=== PATIENT | female | born 1940 | race Caucasian/White ===

== ENCOUNTER → 2017-12-11 | Outpatient (CLI) | payer OTHER ==
[~2017-12-11] MED LIST: ATOR20TA65 PO; CALC-839 PO; FAMC500T18 PO; SUCR1TAB2 PO
== END | disposition home or self-care (01) ==
LOC: OIH 15:31
PROVIDERS: ATTEND Family Medicine
DX: M19.042 Primary osteoarthritis, left hand (principal); M19.041 Primary osteoarthritis, right hand; M47.895 Other spondylosis, thoracolumbar region
CPT/HCPCS: 71046; 73130

== ENCOUNTER → 2018-03-12 | Outpatient (CLI) | payer OTHER | END | disposition home or self-care (01) | LOC: OIH 15:17 | PROVIDERS: ATTEND Family Medicine | DX: M54.5 Low back pain (principal) | CPT/HCPCS: 72100 ==

== ENCOUNTER 2018-03-13 13:26 | Emergency (ER) | payer OTHER ==
[2018-03-13] MEDS ORDERED: DIAZEPAM 5 MG TABLET ONE ×2 (14:12→14:21)
[2018-03-13] MEDS ORDERED: KETOROLAC TROMETHAMINE 15MG/ML ONE ×2 (14:12→14:20)
[2018-03-13 14:32] LABS: BASOPHILS % (AUTO) 0.6 % (0.0-5.0); EOSINOPHILS % (AUTO) 0.4 % (0.0-8.0); HEMATOCRIT 40.6 % (36-48); LYMPHOCYTES % (AUTO) 19.1 % (21.0-51.0); MEAN CORPUSCULAR HEMOGLOBIN 31.3 pg (27.0-33.0); MEAN CORPUSCULAR HGB CONC 34.2 g/dL (32.0-36.0); MEAN CORPUSCULAR VOLUME 91.6 fL (79-99); MONOCYTES % (AUTO) 7.7 % (3.0-13.0); NEUTROPHILS % (AUTO) 72.2 % (40.0-77.0); PLATELET COUNT (AUTO) 250 K/uL (130-400); RED BLOOD CELL COUNT(AUTO) 4.43 MIL/uL (4.00-5.50); RED CELL DISTRIBUTION WIDTH 13.7 % (11.0-15.5)
[2018-03-13 14:42] LABS: CREATININE 0.8 mg/dL (0.5-1.5); POTASSIUM 4.3 mmol/L (3.5-5.1)
[2018-03-13 14:43] LABS: APPEARANCE,URINE Clear (CLEAR); BILIRUBIN,URINE Negative (NEGATIVE); COLOR,URINE Yellow (YELLOW); GLUCOSE, URINE (UA) Negative (NEGATIVE); KETONES,URINE Negative (NEGATIVE); LEUKOCYTE ESTERASE ,URINE Negative (NEGATIVE); NITRATE,URINE Negative (NEGATIVE); OCCULT BLOOD,URINE Trace (NEGATIVE); PROTEIN,URINE Negative (NEGATIVE); UROBILINOGEN,URINE 0.2 mg/dL (0.2-1.0)
[2018-03-13 14:44] LABS: INR 0.99 (0.85-1.15); PARTIAL THROMBOPLASTIN TIME 27.9 SEC (26.3-35.5); PROTHROMBIN TIME 10.4 SEC (9.6-11.6)
[2018-03-13 14:46] LABS: BILIRUBIN,TOTAL 0.5 mg/dL (0.2-1.0); TOTAL PROTEIN, SERUM 7.4 g/dL (6.0-8.3)
[2018-03-13 14:58] LABS: CREATINE KINASE MB 1.8 ng/mL (0.5-3.6)
[2018-03-13 15:08] LABS: WBC,URINE 0-1 /HPF (0-1)
[2018-03-13 15:09] LABS: BACTERIA,URINE Rare /HPF (None Seen); SQUAMOUS EPITHELIAL CELL,UR Rare /HPF (0-2)
[2018-03-13] MEDS ORDERED: ONDANSETRON HCL MDV 20ML 2 MG/ML VIAL ONE (16:40)
[2018-03-13] MEDS ORDERED: MEPERIDINE-PF 25 MG/ML SYG ONE (16:41)
== END 2018-03-13 17:29 | disposition home or self-care (01) ==
LOC: EDH 13:26
DX: M54.16 Radiculopathy, lumbar region (principal); N20.1 Calculus of ureter; E78.00 Pure hypercholesterolemia, unspecified; Z88.2 Allergy status to sulfonamides; Z88.1 Allergy status to other antibiotic agents; Z88.8 Allergy status to other drugs, medicaments and biological substances; Z90.710 Acquired absence of both cervix and uterus; Z90.49 Acquired absence of other specified parts of digestive tract
CPT/HCPCS: 36415; 74176; 80053; 81001; 82550; 82553; 83690; 84484; 85025; 85610; 85730; 93005; 96374; 96375; 99285; J1885; J2175

== ENCOUNTER → 2020-04-15 | Outpatient (CLI) | payer MEDICARE ==
[~2020-04-15] MED LIST changes: -FAMC500T18 PO; +FAMC500T8 PO; +REGADENOSON 0.4 MG/5 ML PF SYG IVP ONE; +REGADENOSON 0.4 MG/5 ML PF SYG IVP SCH
== END ==
LOC: SHCH 08:10
PROVIDERS: ATTEND Internal Medicine Cardiovascular Disease
DX: I20.9 Angina pectoris, unspecified (principal); R06.09 Other forms of dyspnea
CPT/HCPCS: 78452; 93017; 96374; A9500 ×2; J2785

== ENCOUNTER → 2020-11-25 | Outpatient (CLI) | payer MEDICARE ==
[~2020-11-25] MED LIST changes: -REGADENOSON 0.4 MG/5 ML PF SYG IVP ONE; -REGADENOSON 0.4 MG/5 ML PF SYG IVP SCH
== END | disposition home or self-care (01) ==
LOC: RAH 10:45
PROVIDERS: ATTEND Internal Medicine Gastroenterology
DX: R11.0 Nausea (principal)
CPT/HCPCS: 78264; A9541

== ENCOUNTER → 2021-01-10 | Outpatient (CLI) | payer MEDICARE ==
[~2021-01-10] VITALS: Ht 162.6 cm; Wt 67.5 kg
[~2021-01-10] MED LIST changes: +ALEN70TA80 PO; +ASPI-1197 PO; +CA C1TAB95 PO; +CITA20TA17 PO; +DICY10CA13 PO; +FISH1CAP50 PO; +METO25TA6 PO; +MULT-1192 PO; +NITR0.4T50 SL; +OMEP40CA13 PO; +SODIUM CHLORIDE 0.9% 500ML 500 ML IV SCH
[2021-01-10 10:16] VITALS: BP 139/68
[2021-01-10 14:17] LABS: BASOPHILS % (AUTO) 0.2 % (0.0-5.0); EOSINOPHILS % (AUTO) 0.7 % (0.0-8.0); HEMATOCRIT 39.6 % (36-48); LYMPHOCYTES % (AUTO) 18.3 % (21.0-51.0); MEAN CORPUSCULAR HEMOGLOBIN 30.6 pg (27.0-33.0); MEAN CORPUSCULAR HGB CONC 32.8 g/dL (32.0-36.0); MEAN CORPUSCULAR VOLUME 93.2 fL (79-99); MONOCYTES % (AUTO) 9.1 % (3.0-13.0); NEUTROPHILS % (AUTO) 71.3 % (40.0-77.0); PLATELET COUNT (AUTO) 267 K/uL (130-400); RED BLOOD CELL COUNT(AUTO) 4.25 MIL/uL (4.00-5.50); RED CELL DISTRIBUTION WIDTH 13.2 % (11.0-15.5); WHITE BLOOD COUNT (AUTO) 8.6 K/uL (4.8-10.8)
[2021-01-10 14:26] LABS: APPEARANCE,URINE Clear (CLEAR); BILIRUBIN,URINE Negative (NEGATIVE); COLOR,URINE Yellow (YELLOW); GLUCOSE, URINE (UA) Negative (NEGATIVE); KETONES,URINE Negative (NEGATIVE); LEUKOCYTE ESTERASE ,URINE Trace (NEGATIVE); NITRATE,URINE Negative (NEGATIVE); OCCULT BLOOD,URINE Trace (NEGATIVE); PH,URINE 5.5 (5.0-8.0); PROTEIN,URINE Negative (NEGATIVE); UROBILINOGEN,URINE 0.2 mg/dL (0.2-1.0)
[2021-01-10 14:28] LABS: CREATININE 0.7 mg/dL (0.5-1.5); POTASSIUM 4.1 mmol/L (3.5-5.1)
[2021-01-10 14:29] LABS: INR 0.97 (0.85-1.15); PROTHROMBIN TIME 10.6 SEC (9.6-11.6)
[2021-01-10 14:31] LABS: PARTIAL THROMBOPLASTIN TIME 26.6 SEC (26.3-35.5)
[2021-01-10 14:58] LABS: BACTERIA,URINE Rare /HPF (None Seen); RBC,URINE None Seen /HPF (0-1); SQUAMOUS EPITHELIAL CELL,UR None Seen /HPF (0-2); WBC,URINE 0-1 /HPF (0-1)
== END | disposition home or self-care (01) ==
LOC: DAH 10:00 → EDSTATUS 13:00
PROVIDERS: ATTEND Internal Medicine Cardiovascular Disease
DX: Z01.810 Encounter for preprocedural cardiovascular examination (principal); I25.119 Atherosclerotic heart disease of native coronary artery with unspecified angina pectoris; Z79.01 Long term (current) use of anticoagulants; Z88.8 Allergy status to other drugs, medicaments and biological substances; Z88.6 Allergy status to analgesic agent
CPT/HCPCS: 36415; 71045; 80048; 81001; 85025; 85610; 85730; 93005

== ENCOUNTER 2021-02-13 13:17 | Day surgery (SDC) | payer MEDICARE ==
[2021-02-09 09:11] VITALS: BP 140/82
[2021-02-09 12:57] LABS: BASOPHILS % (AUTO) 0.4 % (0.0-5.0); HEMATOCRIT 39.5 % (36-48); LYMPHOCYTES % (AUTO) 19.8 % (21.0-51.0); MEAN CORPUSCULAR HEMOGLOBIN 29.9 pg (27.0-33.0); MEAN CORPUSCULAR HGB CONC 32.4 g/dL (32.0-36.0); MEAN CORPUSCULAR VOLUME 92.3 fL (79-99); MONOCYTES % (AUTO) 11.5 % (3.0-13.0); NEUTROPHILS % (AUTO) 66.9 % (40.0-77.0); PLATELET COUNT (AUTO) 283 K/uL (130-400); RED BLOOD CELL COUNT(AUTO) 4.28 MIL/uL (4.00-5.50); RED CELL DISTRIBUTION WIDTH 13.2 % (11.0-15.5); WHITE BLOOD COUNT (AUTO) 7.8 K/uL (4.8-10.8)
[2021-02-09 13:07] LABS: APPEARANCE,URINE Clear (CLEAR); BILIRUBIN,URINE Negative (NEGATIVE); COLOR,URINE Yellow (YELLOW); CREATININE 0.7 mg/dL (0.5-1.5); GLUCOSE, URINE (UA) Negative (NEGATIVE); KETONES,URINE Negative (NEGATIVE); LEUKOCYTE ESTERASE ,URINE Trace (NEGATIVE); NITRATE,URINE Negative (NEGATIVE); OCCULT BLOOD,URINE Trace (NEGATIVE); POTASSIUM 3.9 mmol/L (3.5-5.1); PROTEIN,URINE Negative (NEGATIVE); UROBILINOGEN,URINE 0.2 mg/dL (0.2-1.0)
[2021-02-09 13:09] LABS: PROTHROMBIN TIME 10.9 SEC (9.6-11.6)
[2021-02-09 13:10] LABS: PARTIAL THROMBOPLASTIN TIME 25.9 SEC (26.3-35.5)
[2021-02-09 13:20] LABS: BACTERIA,URINE Rare /HPF (None Seen); RBC,URINE 0-1 /HPF (0-1); SQUAMOUS EPITHELIAL CELL,UR Rare /HPF (0-2); WBC,URINE 0-1 /HPF (0-1)
[~2021-02-13] VITALS: Ht 162.6 cm; Wt 65.8 kg
[2021-02-13] VITALS (9 sets, daily range): BP systolic 135–167; BP diastolic 65–81
[~2021-02-13 13:17] MED LIST changes: +0.9%NACL 1000ML 1,000 ML IV SCH; -CALC-839 PO; +FENTANYL CITRATE PF 50 MCG/1 ML 2ML VIAL ONE; +HEPARIN 1,000 UNIT VIAL ONE; +IOHEXOL-350 50ML VIAL IV ONE; +IOPAMIDOL-370 100 ML VIAL IV ONE; +LIDOCAINE HCL 400MG/20ML VIAL ONE; +MIDAZOLAM HCL 1 MG/ML 2ML VIAL ONE; +NITROGLYCERIN 2 MG VIAL IV ONE; -OMEP40CA13 PO; +OMEP40CA21 PO; -SODIUM CHLORIDE 0.9% 500ML 500 ML IV SCH; -SUCR1TAB2 PO
== END 2021-02-13 16:39 | disposition home or self-care (01) ==
LOC: DAH 13:17
PROVIDERS: ATTEND Internal Medicine Cardiovascular Disease
DX: I25.118 Atherosclerotic heart disease of native coronary artery with other forms of angina pectoris (principal); I50.33 Acute on chronic diastolic (congestive) heart failure; E78.5 Hyperlipidemia, unspecified; F32.9 Major depressive disorder, single episode, unspecified; F41.9 Anxiety disorder, unspecified; M81.0 Age-related osteoporosis without current pathological fracture; E86.0 Dehydration; Z86.73 Personal history of transient ischemic attack (TIA), and cerebral infarction without residual deficits; Z90.49 Acquired absence of other specified parts of digestive tract; Z90.710 Acquired absence of both cervix and uterus; Z79.01 Long term (current) use of anticoagulants; Z79.899 Other long term (current) drug therapy
CPT/HCPCS: 36415; 71045; 80048; 81001; 85025; 85610; 85730; 93005; 93460; 96360; 96361; A4215; A4216; A4221; A4222; A4223 ×3; A4606; A4663; C1760; C1769; C1894 ×3; J1644 ×2; J2250; J3010; J3490 ×2; Q9967 ×2; 99156; 99157

== ENCOUNTER 2021-10-19 13:21 | Inpatient (IN) | payer MEDICARE ==
[~2021-10-19] VITALS: Ht 162.6 cm; Wt 64.2 kg
[~2021-10-19 13:21] MED LIST changes: -0.9%NACL 1000ML 1,000 ML IV SCH; -FENTANYL CITRATE PF 50 MCG/1 ML 2ML VIAL ONE; -HEPARIN 1,000 UNIT VIAL ONE; -IOHEXOL-350 50ML VIAL IV ONE; -IOPAMIDOL-370 100 ML VIAL IV ONE; -LIDOCAINE HCL 400MG/20ML VIAL ONE; -MIDAZOLAM HCL 1 MG/ML 2ML VIAL ONE; -NITROGLYCERIN 2 MG VIAL IV ONE
[2021-10-19 14:59] LABS: APPEARANCE,URINE Clear (CLEAR); BILIRUBIN,URINE Negative (NEGATIVE); COLOR,URINE Yellow (YELLOW); GLUCOSE, URINE (UA) Negative (NEGATIVE); KETONES,URINE Negative (NEGATIVE); LEUKOCYTE ESTERASE ,URINE Moderate (NEGATIVE); NITRATE,URINE Negative (NEGATIVE); OCCULT BLOOD,URINE Moderate (NEGATIVE); PH,URINE 6.5 (5.0-8.0); PROTEIN,URINE Negative (NEGATIVE)
[2021-10-19 15:09] LABS: BASOPHILS % (AUTO) 0.4 % (0.0-5.0); EOSINOPHILS % (AUTO) 1.6 % (0.0-8.0); HEMATOCRIT 38.9 % (36-48); LYMPHOCYTES % (AUTO) 19.6 % (21.0-51.0); MEAN CORPUSCULAR HEMOGLOBIN 30.5 pg (27.0-33.0); MEAN CORPUSCULAR HGB CONC 31.9 g/dL (32.0-36.0); MEAN CORPUSCULAR VOLUME 95.6 fL (79-99); MONOCYTES % (AUTO) 13.2 % (3.0-13.0); NEUTROPHILS % (AUTO) 64.4 % (40.0-77.0); PLATELET COUNT (AUTO) 240 K/uL (130-400); RED BLOOD CELL COUNT(AUTO) 4.07 MIL/uL (4.00-5.50); RED CELL DISTRIBUTION WIDTH 13.6 % (11.0-15.5); WHITE BLOOD COUNT (AUTO) 7.7 K/uL (4.8-10.8)
[2021-10-19 15:15] LABS: CREATININE 0.8 mg/dL (0.5-1.5); POTASSIUM 4.4 mmol/L (3.5-5.1)
[2021-10-19 15:23] LABS: B-TYPE NATRIURETIC PEPTIDE 132 pg/mL (0-100)
[2021-10-19 15:26] LABS: ALBUMIN 3.7 g/dL (3.5-5.0); BILIRUBIN,TOTAL 0.4 mg/dL (0.2-1.0); MAGNESIUM 2.3 mg/dL (1.80-2.40); TOTAL PROTEIN, SERUM 7.2 g/dL (6.0-8.3)
[2021-10-19 15:29] LABS: BACTERIA,URINE Few /HPF (None Seen); RBC,URINE 0-1 /HPF (0-1)
[2021-10-19 15:30] LABS: MUCUS,URINE Rare LPF (None Seen); SQUAMOUS EPITHELIAL CELL,UR Few /HPF (0-2)
[2021-10-19] MEDS ORDERED: ONDANSETRON 4MG INJ IV PRN (19:30)
[2021-10-19] MEDS: 0.9%NACL 1000ML 1,000 ML IV SCH (19:51)
[2021-10-19] MEDS: FAMOTIDINE 20MG VIAL IV SCH (20:57)
[2021-10-19] MEDS: ATORVASTATIN 20 MG TABLET PO SCH (21:16)
[2021-10-19] MEDS: CLOPIDOGREL 75MG TAB PO SCH (21:16)
[2021-10-19] MEDS: ASPIRIN 81MG CHEW TAB PO SCH (21:16)
[2021-10-19 22:29] LABS: HEMOGLOBIN A1C 5.7 % (4.0-6.0)
[2021-10-19 22:40] LABS: CHOLESTEROL 157 mg/dL (<200); HDL CHOLESTEROL 43 mg/dL (35-85); LDL DIRECT 78 mg/dL (0-99); TRIGLYCERIDES 293 mg/dL (30-200)
[2021-10-20] MEDS: 0.9%NACL 1000ML 1,000 ML IV SCH ×2 (05:23→15:30)
[2021-10-20 06:38] VITALS: BP 139/97
[2021-10-20 08:30] VITALS: BP 159/72
[2021-10-20] MEDS: LEVOFLOXACIN 250 MG/D5W 50ML 50 ML IVPB SCH (09:20)
[2021-10-20] MEDS: CLOPIDOGREL 75MG TAB PO SCH (09:20)
[2021-10-20] MEDS: ASPIRIN 81MG CHEW TAB PO SCH (09:20)
[2021-10-20] MEDS ORDERED: ACETAMINOPHEN 325 MG TAB ONE (09:29)
[2021-10-20] MEDS ORDERED: ACET-2123 PO (11:51)
[2021-10-20] MEDS ORDERED: GABA300S PO (11:51)
[2021-10-20 12:42] VITALS: BP 152/83
[2021-10-20] MEDS: ACETAMINOPHEN 325 MG TAB PO PRN (16:07)
[2021-10-20 16:50] VITALS: BP 164/92
[2021-10-20] MEDS: ATORVASTATIN 20 MG TABLET PO SCH (20:24)
[2021-10-20] MEDS: FAMOTIDINE 20MG VIAL IV SCH (20:24)
[2021-10-20] MEDS: METOPROLOL TARTRATE 25 MG TAB PO SCH (20:24)
[2021-10-20 23:09] VITALS: BP 138/80
[2021-10-21 03:59] VITALS: BP 129/75
[2021-10-21 04:55] LABS: BASOPHILS % (AUTO) 0.5 % (0.0-5.0); EOSINOPHILS % (AUTO) 1.3 % (0.0-8.0); HEMATOCRIT 39.4 % (36-48); LYMPHOCYTES % (AUTO) 14.4 % (21.0-51.0); MEAN CORPUSCULAR HEMOGLOBIN 30.9 pg (27.0-33.0); MEAN CORPUSCULAR HGB CONC 33.5 g/dL (32.0-36.0); MEAN CORPUSCULAR VOLUME 92.3 fL (79-99); MONOCYTES % (AUTO) 12.7 % (3.0-13.0); NEUTROPHILS % (AUTO) 70.3 % (40.0-77.0); PLATELET COUNT (AUTO) 243 K/uL (130-400); RED BLOOD CELL COUNT(AUTO) 4.27 MIL/uL (4.00-5.50); RED CELL DISTRIBUTION WIDTH 13.4 % (11.0-15.5); WHITE BLOOD COUNT (AUTO) 7.9 K/uL (4.8-10.8)
[2021-10-21 05:19] LABS: ALBUMIN 3.5 g/dL (3.5-5.0); BILIRUBIN,TOTAL 0.7 mg/dL (0.2-1.0); CREATININE 0.6 mg/dL (0.5-1.5); POTASSIUM 3.4 mmol/L (3.5-5.1); TOTAL PROTEIN, SERUM 6.9 g/dL (6.0-8.3)
[2021-10-21 08:49] VITALS: BP 167/87
[2021-10-21] MEDS ORDERED: POTASSIUM CHLORIDE 10% ELIXIR 20 MEQ/15 ML UDCUP PO SCH (09:00)
[2021-10-21] MEDS: ASPIRIN 81MG CHEW TAB PO SCH (10:08)
[2021-10-21] MEDS: MULTIVITAMIN TABLET PO SCH (10:09)
[2021-10-21] MEDS: CITALOPRAM 20 MG TABLET PO SCH (10:09)
[2021-10-21] MEDS: ACETAMINOPHEN 325 MG TAB PO PRN (10:09)
[2021-10-21] MEDS: DICYCLOMINE HCL 20 MG TAB PO SCH ×2 (10:10→20:46)
[2021-10-21] MEDS: LEVOFLOXACIN 250 MG/D5W 50ML 50 ML IVPB SCH (10:10)
[2021-10-21] MEDS: CLOPIDOGREL 75MG TAB PO SCH (10:10)
[2021-10-21] MEDS: METOPROLOL TARTRATE 25 MG TAB PO SCH ×2 (10:10→20:46)
[2021-10-21] MEDS: FISH OIL 1000 MG/CAP PO SCH (10:11)
[2021-10-21 13:16] VITALS: BP 150/77
[2021-10-21 16:00] VITALS: BP 138/86
[2021-10-21 19:00] VITALS: BP 139/75
[2021-10-21] MEDS: ATORVASTATIN 20 MG TABLET PO SCH (20:46)
[2021-10-21] MEDS: FAMOTIDINE 20MG VIAL IV SCH (20:46)
[2021-10-21 23:25] VITALS: BP 126/76
[2021-10-22 03:44] VITALS: BP 145/79
[2021-10-22 06:54] LABS: BASOPHILS % (AUTO) 0.6 % (0.0-5.0); EOSINOPHILS % (AUTO) 1.6 % (0.0-8.0); LYMPHOCYTES % (AUTO) 15.5 % (21.0-51.0); MEAN CORPUSCULAR HEMOGLOBIN 30.8 pg (27.0-33.0); MEAN CORPUSCULAR HGB CONC 33.4 g/dL (32.0-36.0); MEAN CORPUSCULAR VOLUME 92.1 fL (79-99); MONOCYTES % (AUTO) 14.4 % (3.0-13.0); NEUTROPHILS % (AUTO) 67.1 % (40.0-77.0); PLATELET COUNT (AUTO) 260 K/uL (130-400); RED BLOOD CELL COUNT(AUTO) 4.45 MIL/uL (4.00-5.50); RED CELL DISTRIBUTION WIDTH 13.5 % (11.0-15.5); WHITE BLOOD COUNT (AUTO) 8.5 K/uL (4.8-10.8)
[2021-10-22 07:08] LABS: ALBUMIN 3.5 g/dL (3.5-5.0); BILIRUBIN,TOTAL 0.5 mg/dL (0.2-1.0); CREATININE 0.7 mg/dL (0.5-1.5); MAGNESIUM 2.2 mg/dL (1.80-2.40); POTASSIUM 3.8 mmol/L (3.5-5.1); TOTAL PROTEIN, SERUM 6.9 g/dL (6.0-8.3)
[2021-10-22 08:05] VITALS: BP 145/74
[2021-10-22] MEDS: METOPROLOL TARTRATE 25 MG TAB PO SCH (08:36)
[2021-10-22] MEDS: LEVOFLOXACIN 250 MG/D5W 50ML 50 ML IVPB SCH (08:36)
[2021-10-22] MEDS: ASPIRIN 81MG CHEW TAB PO SCH (08:36)
[2021-10-22] MEDS: CLOPIDOGREL 75MG TAB PO SCH (08:37)
[2021-10-22] MEDS: FISH OIL 1000 MG/CAP PO SCH (08:37)
[2021-10-22] MEDS: MULTIVITAMIN TABLET PO SCH (08:37)
[2021-10-22] MEDS: CITALOPRAM 20 MG TABLET PO SCH (08:37)
[2021-10-22] MEDS: DICYCLOMINE HCL 20 MG TAB PO SCH (08:37)
[2021-10-22] MEDS ORDERED: ASPI-1197 PO (09:01)
[2021-10-22] MEDS ORDERED: METO25 PO (09:01)
[2021-10-22] MEDS ORDERED: CLOP75TA14 PO (09:01)
[2021-10-22 12:26] VITALS: BP 148/77
== END 2021-10-22 14:55 | disposition home or self-care (01) | DRG 66 ==
LOC: EDH 13:21 → EDHIP 19:17 → 2AH 10-20 06:23
PROVIDERS: ADMIT Hospitalist; ATTEND Hospitalist
DX: I63.532 Cerebral infarction due to unspecified occlusion or stenosis of left posterior cerebral artery (principal); E78.00 Pure hypercholesterolemia, unspecified; E78.5 Hyperlipidemia, unspecified; I10 Essential (primary) hypertension; R47.01 Aphasia; M19.90 Unspecified osteoarthritis, unspecified site; K58.9 Irritable bowel syndrome, unspecified; K21.9 Gastro-esophageal reflux disease without esophagitis; R29.701 NIHSS score 1; I45.10 Unspecified right bundle-branch block; M81.0 Age-related osteoporosis without current pathological fracture; N30.90 Cystitis, unspecified without hematuria; F41.9 Anxiety disorder, unspecified; F32.A Depression, unspecified; Z88.5 Allergy status to narcotic agent; Z88.0 Allergy status to penicillin; Z88.2 Allergy status to sulfonamides; Z88.8 Allergy status to other drugs, medicaments and biological substances; Z90.49 Acquired absence of other specified parts of digestive tract; Z90.710 Acquired absence of both cervix and uterus; Z87.891 Personal history of nicotine dependence; Z79.82 Long term (current) use of aspirin; Z79.83 Long term (current) use of bisphosphonates; Z79.899 Other long term (current) drug therapy; Z86.73 Personal history of transient ischemic attack (TIA), and cerebral infarction without residual deficits; Z82.3 Family history of stroke; Z82.49 Family history of ischemic heart disease and other diseases of the circulatory system
CPT/HCPCS: 36415; 70450; 70544; 70547; 70551; 71045; 80053; 80061; 81001; 82550; 83036; 83735; 83880; 84484; 85025; 87088; 93005; 93306; 93356; 93880; G0378; J1956; J3490; J7030